=== PATIENT | male | born 1930 | race Caucasian/White ===

== ENCOUNTER 2016-08-13 22:22 | Emergency (ER) | payer OTHER ==
[~2016-08-13] VITALS: Ht 165.1 cm; Wt 78.0 kg
--- NOTE | 2016-08-13 22:25 | NUR ---
PT PRESENTED TO THE ER WITH A C/O GENERALIZED ABD PAIN THAT RADIATES TO THE CHEST. PT IS C/O PAIN 10/24. PT IS ENGLISH SPEAKING ONLY AND FAMILY IS AT THE BEDSIDE. PT IS ON THE MONITOR AND CONTINUOUS PULSE OX. VSS
[2016-08-13] MEDS ORDERED: IV NS 0.9% 500 ML BAG IV ONE (23:00)
[2016-08-13] MEDS ORDERED: MORPHINE SULFATE INJ 2 MG/ML DISP.SYRIN IV ONE (23:00)
[2016-08-13] MEDS ORDERED: ONDANSETRON HCL/PF 4 MG/2 ML VIAL IVP ONE (23:00)
[2016-08-13] MEDS ORDERED: IV NS 0.9% 500 ML IV ONE (23:01)
[2016-08-13] MEDS ORDERED: MORPHINE SULFATE INJ 2 MG/ML DISP.SYRIN ONE (23:01)
[2016-08-13] MEDS ORDERED: ONDANSETRON HCL/PF 4 MG/2 ML VIAL ONE (23:01)
[2016-08-13] MEDS ORDERED: IV SET PRIMARY 1 EA INFUS.SET MC ONE (23:01)
[2016-08-13 23:10] LABS: APPEARANCE,URINE CLEAR (CLEAR); BILIRUBIN,URINE NEGATIVE (NEGATIVE); BLOOD, URINE NEGATIVE Ery/uL (NEGATIVE); COLOR,URINE YELLOW (YELLOW); KETONES,URINE NEGATIVE (NEGATIVE); LEUKOCYTE ESTERASE ,URINE NEGATIVE (NEGATIVE); NITRITE, URINE NEGATIVE (NEGATIVE); PROTEIN,URINE TRACE mg/dl (NEGATIVE); UGLUCOSE NEGATIVE (NEGATIVE); UROBILINOGEN,URINE 0.2 EU/dL (0.2)
[2016-08-13 23:11] LABS: BASOPHILS % (AUTO) 0.7 % (0.0-2.0); EOSINOPHILS # (AUTO) 0.2 /CMM (0.0-0.7); EOSINOPHILS % (AUTO) 2.3 % (0.0-6.0); HEMATOCRIT 32 % (39-51); HEMOGLOBIN 10.7 g/dL (13.5-17.5); LYMPHOCYTES # (AUTO) 1.7 /CMM (0.8-4.8); LYMPHOCYTES % (AUTO) 22.8 % (20.0-44.0); MEAN CORPUSCULAR HEMOGLOBIN 31 PG (26.0-33.0); MEAN CORPUSCULAR HGB CONC 33 g/dl (31.0-36.0); MEAN CORPUSCULAR VOLUME 94 fL (80-96); MONOCYTES # (AUTO) 0.9 /CMM (0.1-1.30); MONOCYTES % (AUTO) 12.1 % (2.0-12.0); NEUTROPHILS # (AUTO) 4.6 /CMM (1.8-8.9); NEUTROPHILS % (AUTO) 62.1 % (43.0-81.0); PLATELET COUNT (AUTO) 311 /CMM (150-450); RDW COEFFICIENT OF VARIATION 13.5 (11.5-15.0); WHITE BLOOD COUNT (AUTO) 7.3 K/uL (4.3-11.0)
[2016-08-13 23:18] LABS: BACTERIA,URINE None seen /HPF (None Seen); HYALINE CASTS, URINE Rare /LPF (None Seen); MUCUS,URINE Few /LPF (None Seen); RBC,URINE 0-2 /HPF (0-2); SQUAMOUS EPITHELIAL CELL,UR Rare /HPF (None Seen); WBC,URINE 0-2 /HPF (0-3)
[2016-08-13 23:30] LABS: CALCIUM, SERUM 8.6 mg/dL (8.5-10.1); CARBON DIOXIDE 19 mmol/L (21-32); CHLORIDE 112 mmol/L (98-107); CREATININE 0.8 mg/dL (0.6-1.3); GLUCOSE 121 mg/dL (74-106); POTASSIUM 4.4 mmol/L (3.5-5.1); SODIUM SERUM 142 mmol/L (136-145); UREA NITROGEN, BLOOD 35 mg/dL (7-18)
[2016-08-13 23:35] LABS: ALANINE AMINOTRANSFERASE 25 U/L (12-78); ALKALINE PHOSPHATASE 83 U/L (46-116); ASPARTATE AMINOTRANSFERASE 22 U/L (15-37); BILIRUBIN,DIRECT 0.1 mg/dL (0.0-0.2); BILIRUBIN,TOTAL 0.4 mg/dL (0.2-1.0); LIPASE 146 U/L (73-393)
[2016-08-13] MEDS ORDERED: CT SWABBABLE VALVE TRANS SET 1 EA INFUS.SET MC ONE (23:45)
[2016-08-13] MEDS ORDERED: IV NS 0.9% 250 ML IV ONE (23:45)
[2016-08-13] MEDS ORDERED: IOHEXOL-300 100 ML VIAL IV ONE ×2 (23:45→23:58)
--- NOTE | 2016-08-13 23:45 | NUR ---
PT LEFT FOR CT VIA GURNEY.
[2016-08-13 23:48] LABS: TROPONIN I < 0.017 ng/mL (0.00-0.056)
[2016-08-13 23:50] LABS: PROTHROMBIN TIME 10.7 SECS (9.5-12.7)
--- NOTE | 2016-08-14 00:04 | NUR ---
PT RETURNED FROM CT.
--- NOTE | 2016-08-14 01:18 | NUR ---
DR. BELLA IS AT THE BEDSIDE. SPEAKING TO THE PT WITH DAVID, SHUN, WHO IS TRANSLATING GEORGIAN FOR THE DR. AND THE PT.
--- NOTE | 2016-08-14 01:26 | NUR ---
IV removed. Catheter intact and site benign. Pressure and 4x4 applied to site. No bleeding noted.Patient discharged to home in stable condition. Written and verbal after care instructions given. Patient verbalizes understanding of instruction. PT AMBULATED OUT WITH A SLOW STEADY GAIT. PT'S DAUGHTERS ARE DRIVING PT HOME.
[2016-08-14 01:28] VITALS: BP 144/76
== END 2016-08-14 01:28 | disposition home or self-care (01) ==
LOC: ER 22:22
DX: K46.9 Unspecified abdominal hernia without obstruction or gangrene (principal); R19.7 Diarrhea, unspecified; I10 Essential (primary) hypertension
CPT/HCPCS: 36415; 71010; 74160; 80048; 80076; 81001; 83690; 84484; 85025; 85730; 93005; 96361; 96374; 96375; 99285; A4606; J2270; J2405; J7040; J7050; Q9967 ×2; Z7610; 81000-TC

== ENCOUNTER 2016-08-20 22:04 | Inpatient (IN) | payer OTHER ==
[~2016-08-20] VITALS: Ht 160 cm; Wt 67.1 kg
--- NOTE | 2016-08-20 22:30 | NUR ---
85 YO MALE BB SELF. PT IS ALERT X 3, C/O ABD PAIN WITH POOR APPITITE. PT AMBULATED TO ER BED WITH STEADY GAIT. SKIN WARM AND DRY, RR EVEN AN DUNLABORED. PT GOWNED, PLACED ON CARDIAC MONTIOR. AWAITING ORDERS FROM [employer] [facility]DER
[2016-08-20] MEDS ORDERED: MORPHINE SULFATE INJ 4 MG/ML DISP.SYRIN ONE (22:35)
[2016-08-20] MEDS ORDERED: ONDANSETRON HCL/PF 4 MG/2 ML VIAL ONE (22:35)
[2016-08-20] MEDS ORDERED: IV NS 0.9% 500 ML IV ONE (22:36)
[2016-08-20] MEDS ORDERED: IV SET PRIMARY 1 EA INFUS.SET MC ONE (22:36)
--- NOTE | 2016-08-20 22:47 | NUR ---
20G LEFT AC IV STARTED. BLOOD SAMPLE OBTAINED AND SENT TO LAB. MEDICATED PT ORDERED
[2016-08-20 22:56] LABS: BASOPHILS % (AUTO) 0.4 % (0.0-2.0); EOSINOPHILS # (AUTO) 0.1 /CMM (0.0-0.7); EOSINOPHILS % (AUTO) 1.9 % (0.0-6.0); HEMATOCRIT 33 % (39-51); HEMOGLOBIN 11.3 g/dL (13.5-17.5); LYMPHOCYTES # (AUTO) 1.5 /CMM (0.8-4.8); LYMPHOCYTES % (AUTO) 20.7 % (20.0-44.0); MEAN CORPUSCULAR HEMOGLOBIN 32 PG (26.0-33.0); MEAN CORPUSCULAR HGB CONC 34 g/dl (31.0-36.0); MEAN CORPUSCULAR VOLUME 93 fL (80-96); MONOCYTES # (AUTO) 0.6 /CMM (0.1-1.30); MONOCYTES % (AUTO) 8.7 % (2.0-12.0); NEUTROPHILS # (AUTO) 5.1 /CMM (1.8-8.9); NEUTROPHILS % (AUTO) 68.3 % (43.0-81.0); PLATELET COUNT (AUTO) 324 /CMM (150-450); RDW COEFFICIENT OF VARIATION 12.8 (11.5-15.0); RED BLOOD CELL COUNT(AUTO) 3.57 MIL/uL (4.5-6.0); WHITE BLOOD COUNT (AUTO) 7.4 K/uL (4.3-11.0)
[2016-08-20] MEDS ORDERED: IV NS 0.9% 500 ML BAG IV ONE (23:00)
[2016-08-20] MEDS ORDERED: ONDANSETRON HCL/PF 4 MG/2 ML VIAL IVP ONE (23:00)
[2016-08-20] MEDS ORDERED: MORPHINE SULFATE INJ 2 MG/ML DISP.SYRIN IV ONE (23:00)
[2016-08-20 23:07] LABS: CALCIUM, SERUM 8.8 mg/dL (8.5-10.1); CARBON DIOXIDE 20 mmol/L (21-32); CHLORIDE 106 mmol/L (98-107); GLUCOSE 115 mg/dL (74-106); POTASSIUM 4.8 mmol/L (3.5-5.1); SODIUM SERUM 137 mmol/L (136-145); UREA NITROGEN, BLOOD 32 mg/dL (7-18)
[2016-08-20 23:13] LABS: ALANINE AMINOTRANSFERASE 33 U/L (12-78); ALBUMIN 3.2 g/dL (3.4-5.0); ALKALINE PHOSPHATASE 104 U/L (46-116); ASPARTATE AMINOTRANSFERASE 21 U/L (15-37); BILIRUBIN,DIRECT 0.1 mg/dL (0.0-0.2); LIPASE 163 U/L (73-393); TOTAL PROTEIN, SERUM 7.3 g/dL (6.4-8.2)
[2016-08-20 23:14] LABS: TROPONIN I < 0.017 ng/mL (0.00-0.056)
[2016-08-20 23:28] LABS: BILIRUBIN,TOTAL 0.3 mg/dL (0.2-1.0)
[2016-08-20 23:41] LABS: APPEARANCE,URINE CLEAR (CLEAR); BILIRUBIN,URINE NEGATIVE (NEGATIVE); BLOOD, URINE NEGATIVE Ery/uL (NEGATIVE); COLOR,URINE YELLOW (YELLOW); KETONES,URINE NEGATIVE (NEGATIVE); LEUKOCYTE ESTERASE ,URINE NEGATIVE (NEGATIVE); NITRITE, URINE NEGATIVE (NEGATIVE); PROTEIN,URINE TRACE mg/dl (NEGATIVE); UGLUCOSE NEGATIVE (NEGATIVE); UROBILINOGEN,URINE 0.2 EU/dL (0.2)
[2016-08-20 23:49] LABS: BACTERIA,URINE None seen /HPF (None Seen); RBC,URINE 0-2 /HPF (0-2); SQUAMOUS EPITHELIAL CELL,UR Rare /HPF (None Seen); WBC,URINE 0-2 /HPF (0-3)
[2016-08-20 23:50] LABS: HYALINE CASTS, URINE Few /LPF (None Seen); MUCUS,URINE Few /LPF (None Seen)
[2016-08-21] MEDS ORDERED: ACETAMINOPHEN 325 MG TABLET PO PRN (01:00)
[2016-08-21] MEDS ORDERED: ONDANSETRON HCL/PF 4 MG/2 ML VIAL IVP PRN (01:00)
[2016-08-21] MEDS ORDERED: ZOLPIDEM TARTRATE 5 MG TABLET PO PRN (01:00)
[2016-08-21] MEDS ORDERED: MAGNESIUM HYDROXIDE 30 ML UDC PO PRN (01:00)
[2016-08-21] MEDS ORDERED: MAG HYDROX/AL HYDROX/SIMETH 30 ML UDC PO PRN (01:00)
[2016-08-21] MEDS ORDERED: Z GUARD REMEDY 2 OZ OINT TP PRN (01:00)
[2016-08-21] MEDS ORDERED: MORPHINE SULFATE INJ 2 MG/ML DISP.SYRIN IV PRN (01:00)
--- NOTE | 2016-08-21 01:51 | NUR ---
PT TRANSPORTED TO [facility] BED VIA GURNEY BY EMT
[2016-08-21] MEDS ORDERED: IV NS 0.9% 1,000 ML ONE (03:54)
[2016-08-21] MEDS ORDERED: IV SET PRIMARY PUMP SET 1 EA INFUS.SET MC ONE (03:55)
[2016-08-21] MEDS ORDERED: SECONDARY IV SET 1 EA INFUS.SET MC ONE (03:55)
--- NOTE | 2016-08-21 06:59 | NUR ---
ADMITTED THIS 85 YEARS OLD MALE FROM E.. PT IS ALERT X 3, C/O ABD PAIN WITH POOR APPITITE. PT AMBULATED TO BATHROOM, WITH STEADY GAIT. SKIN WARM AND DRY, RR EVEN AND UNLABORED. AFIBRILE VITAL SIGN STABLE, SALINE LOCK TO L AC INFUSING WITH NORMAL SALINE, SKIN INTACT WILL ENDURSE TO THE MORNING NURSE TO CONTINUNITY OF CARE.
[2016-08-21] MEDS: PANTOPRAZOLE 40 MG TABLET.DR PO SCH (07:30)
--- NOTE | 2016-08-21 07:50 | NUR ---
MS RN NOTES RECEIVED REPORT WITH PATIENT LAYING DOWN IN BED. NO S/S OF ACUTE DISTRESS NOTED. NO SOB NOTED. IV IS PATENT AND INTACT. BED IS IN LOWEST LOCKED POSITION. CALL LIGHT IS WITHIN REACH. WILL CONTINUE TO MONITOR THROUGHOUT SHIFT.
[2016-08-21 08:00] VITALS: BP 104/64
[2016-08-21] MEDS ORDERED: AMLO1CAP10 PO (08:32)
[2016-08-21] MEDS ORDERED: TAMS0.4C34 PO (08:32)
[2016-08-21] MEDS ORDERED: ACET-868 PO (08:32)
--- NOTE | 2016-08-21 08:50 | NUR ---
MS RN NOTES RECEIVED CALL FROM RADIOLOGY TO KEEP PATIENT NPO UNTIL CT WITH CONTRAST IS COMPLETED.
[2016-08-21] MEDS: ACETYLCYSTEINE 10% 3,000 MG/30 ML VIAL PO SCH ×2 (09:00→17:42)
[2016-08-21] MEDS ORDERED: PEG 3350/NA SULF,BICARB,CL/KCL 4,000 ML BOTTLE PO ONE (13:00)
[2016-08-21] MEDS ORDERED: IOHEXOL-300 100 ML VIAL IV ONE (15:32)
[2016-08-21] MEDS ORDERED: IV NS 0.9% 250 ML IV ONE (15:32)
--- NOTE | 2016-08-21 15:45 | NUR ---
MS RN NOTES PATIENT COMPLAINING OF SEVERE PAIN. , DR. ROLLE MADE AWARE. ORDERS RECEIVED TO ADMINISTER 2MG MORPHINE Q2H PRN. WILL CONTINUE TO MONITOR
[2016-08-21 16:00] VITALS: BP 169/73
[2016-08-21] MEDS: MORPHINE SULFATE INJ 2 MG/ML DISP.SYRIN IV PRN ×2 (17:43→20:10)
--- NOTE | 2016-08-21 18:56 | NUR ---
MS RN NOTES PATIENT IS CURRENTLY SITTING UP IN BED. PATIENT IS A/OX4, EGYPTIAN SPEAKING. DAUGHTER AT BEDSIDE. PATIENT IN PROCESS OF DRINKING GO LYTELY. FREQUENTLY ENCOURAGING PATIENT TO DRINK GO LYTELY. PATIENT COMPLAINING OF ABDOMINAL PAIN STILL. NO SOB HAS BEEN NOTED. IV IS PATENT AND INTACT. CALL LIGHT WITHIN REACH. BED IN LOW, LOCKED POSITION, WILL ENDORSE CARE TO PM SHIFT.
--- NOTE | 2016-08-21 19:15 | NUR ---
RN NOTES RECEIVED PT AWAKE, OUT OF BED SITTING IN THE CHAIR, NO SOB, NOT IN DISTRESS, ON ROOM AIR AND TOLERATED WELL. PT ALERT AND ORIENTED X3, [place] SPEAKING ONLY, PAIN ON ABDOMEN AT 6/10, WILL ADMINISTER PAIN MEDS WHEN ITS DUE. IV ACCESS ON LEFT AC PATENT AND INTACT. PT IS AMBULATORY WITH STEADY GAIT, WALKING IN THE HALLWAY WITH THE FAMILY. OFFERED GOLYTELY TOLERATED, IN PREPARATION FOR TOMORROW'S SCHEDULED EGD AND COLONOSCOPY.. KEPT COMFORTABLE AND ATTENDED. WILL CONTINUE TO MONITOR PT.
[2016-08-21 20:00] VITALS: BP 152/86
--- NOTE | 2016-08-21 20:10 | NUR ---
RN NOTES PT COMPLAINS OF ABDOMINAL PAIN 10/, MORPHINE 2MG GIVEN IV. WILL CONTINUE TO MONITOR PT.
--- NOTE | 2016-08-21 21:05 | NUR ---
RN NOTES CONSENT FOR EGD AND COLONOSCOPY GIVEN BY DAUGHTER, SARAH NEAL.
--- NOTE | 2016-08-21 21:39 | NUR ---
RN NOTES PT STILL IN PAIN, PER PT THE PAIN MEDICATION IS NOT EFFECTIVE. DR YE MADE AWARE WITH ORDER TO D/C MORPHINE 2MG IV Q2H PRN AND CHANGE TO MORPHINE SULPHATE 3MG IV Q2H PRN FOR SEVERE PAIN. PT AND DAUGHTER AT BEDSIDE MADE AWARE. WILL CONTINUE TO MONITOR PT.
[2016-08-21 22:00] VITALS: BP 152/86
[2016-08-21] MEDS ORDERED: MORPHINE SULFATE INJ 4 MG/ML DISP.SYRIN ONE (22:16)
[2016-08-21] MEDS: MORPHINE SULFATE INJ 4 MG/ML DISP.SYRIN IV PRN (22:37)
--- NOTE | 2016-08-21 22:37 | NUR ---
RN NOTES PT COMPLAINS OF ABDOMINAL PAIN /, MORPHINE 3MG GIVEN IV. WILL CONTINUE TO MONITOR PT.
--- NOTE | 2016-08-22 | NUR ---
RN NOTES PLACED PT ON NPO, DAUGHTER AT BEDSIDE ATTRACTION ATTENDANT. PT VERBALIZES UNDERSTANDING. WILL CONTINUE TO MONITOR PT.
[2016-08-22] MEDS ORDERED: MORPHINE SULFATE INJ 4 MG/ML DISP.SYRIN ONE (02:23)
[2016-08-22] MEDS: MORPHINE SULFATE INJ 4 MG/ML DISP.SYRIN IV PRN (02:29)
[2016-08-22] MEDS: IV NS 0.9% 1,000 ML IV PRN (05:39)
--- NOTE | 2016-08-22 06:59 | NUR ---
RN NOTES PT AWAKE, OUT OF BED SITTING IN THE CHAIR. NO SOB, NOT IN DISTRESS, ON ROOM AIR AND TOLERATED WELL. VITAL SIGNS STABLE, AFEBRILE. NO EPISODE OF NAUSEA AND VOMITING. KEPT PAIN AT TOLERABLE LEVEL. UNABLE TO FINISH GOLYTELY 4 LITERS, ONLY 2 LITERS WITH CLEAR BOWEL MOVEMENT NOTED. FOR EGD AND COLONOSCOPY TODAY, AWAITING FOR SCHEDULE. KEPT PT ON NPO. ALL NEEDS ATTENDED. WILL ENDORSE TO MORNING RN FOR CONTINUITY OF CARE.
[2016-08-22 07:06] LABS: BASOPHILS % (AUTO) 0.3 % (0.0-2.0); EOSINOPHILS % (AUTO) 0.5 % (0.0-6.0); HEMATOCRIT 33 % (39-51); HEMOGLOBIN 11.3 g/dL (13.5-17.5); LYMPHOCYTES # (AUTO) 1.8 /CMM (0.8-4.8); LYMPHOCYTES % (AUTO) 26.3 % (20.0-44.0); MEAN CORPUSCULAR HEMOGLOBIN 32 PG (26.0-33.0); MEAN CORPUSCULAR HGB CONC 34 g/dl (31.0-36.0); MEAN CORPUSCULAR VOLUME 93 fL (80-96); MONOCYTES # (AUTO) 0.8 /CMM (0.1-1.30); MONOCYTES % (AUTO) 11.5 % (2.0-12.0); NEUTROPHILS # (AUTO) 4.3 /CMM (1.8-8.9); NEUTROPHILS % (AUTO) 61.4 % (43.0-81.0); PLATELET COUNT (AUTO) 328 /CMM (150-450); RDW COEFFICIENT OF VARIATION 13.5 (11.5-15.0); RED BLOOD CELL COUNT(AUTO) 3.54 MIL/uL (4.5-6.0)
--- NOTE | 2016-08-22 07:17 | NUR ---
MS RN OPENING NOTES PT RECEIVED AWAKE IN BED IN NO ACUTE SIGNS OF DISTRESS. ALERT AND ORIENTED X3, DENIES ANY PAIN OR DISCOMFORTS AT THIS TIME. FOR EGD AND COLONOSCOPY TODAY, NPO MAINTAINED. ON ROOM AIR, RESPIRATION EVN AND UNLABORED. IV ACCESS ON LAC G#18 INTACT AND PATENT. CALL LIGHT WITHIN REACH. BED ALARM IN PLACE. BED IN LOW POSITION AND LOCKED. SAFETY PRECAUTIONS MAINTAINED. WILL CONTINUE TO MONITOR ACCORDINGLY.
[2016-08-22 07:27] LABS: ALANINE AMINOTRANSFERASE 30 U/L (12-78); ALBUMIN 2.9 g/dL (3.4-5.0); ALKALINE PHOSPHATASE 95 U/L (46-116); ASPARTATE AMINOTRANSFERASE 18 U/L (15-37); BILIRUBIN,TOTAL 0.4 mg/dL (0.2-1.0); CALCIUM, SERUM 8.5 mg/dL (8.5-10.1); CARBON DIOXIDE 19 mmol/L (21-32); CHLORIDE 109 mmol/L (98-107); CREATININE 0.7 mg/dL (0.6-1.3); GLUCOSE 96 mg/dL (74-106); PHOSPHORUS 3.9 mg/dL (2.5-4.9); POTASSIUM 4.2 mmol/L (3.5-5.1); SODIUM SERUM 141 mmol/L (136-145); TOTAL PROTEIN, SERUM 6.9 g/dL (6.4-8.2); UREA NITROGEN, BLOOD 16 mg/dL (7-18)
[2016-08-22] MEDS: PANTOPRAZOLE 40 MG TABLET.DR PO SCH (07:30)
[2016-08-22 07:35] LABS: IRON, SERUM 25 ug/dl (50-175); TOTAL IRON BINDING CAPACITY 256 ug/dl (250-450)
[2016-08-22 07:36] LABS: FERRITIN 101 ng/mL (8-388)
[2016-08-22 08:00] VITALS: BP 152/86
[2016-08-22 08:58] LABS: RETICULOCYTE COUNT 0.7 % (0.6-2.5)
[2016-08-22] MEDS ORDERED: DORZ10DR8 RIGHTEYE (11:09)
[2016-08-22] MEDS ORDERED: TIMO5DRO4 RIGHTEYE (11:09)
--- NOTE | 2016-08-22 12:28 | NUR ---
RN NOTES CALLED FRANCES PAYAN REGARDING PATIENT'S COLONOSCOPY AND EGD PROCEDURES. HE SAID THAT TO PUT PATIENT ON CLEAR LIQUIDS DIET IF PROCEDURES NOT DONE TODAY AND NPO AFTER DINNER. PATIENT AND DAUGHTER INFORMED AND VERBALIZED UNDERSTANDING.
[2016-08-22] MEDS ORDERED: SECONDARY IV SET 1 EA INFUS.SET MC ONE (14:24)
[2016-08-22] MEDS: SOD FERRIC GLUC 125 MG in IV NS 0.9% 100 ML IV SCH (14:29)
[2016-08-22 16:00] VITALS: BP 135/60
--- NOTE | 2016-08-22 18:56 | NUR ---
MS RN CLOSING NOTES PATIENT RESTING IN BED WITH FAMILY AT BEDSIDE. ALERT AND ORIENTED X3, NO C/O PAIN THROUGHOUT THE DAY. ALL REQUIRED NURSING CARE DONE. FOR EGD AND COLONOSCOPY TOMORROW, NPO AFTER DINNER ENFORCED, FAMILY AWARE. ON ROOM AIR, NO SOB NOTED. IV ACCESS ON LAC G#18 INTACT AND PATENT. CALL LIGHT WITHIN REACH. BED IN LOW POSITION AND LOCKED. SAFETY PRECAUTIONS MAINTAINED. WILL ENDORSED TO PATIENT REGISTRAR FOR ALVA
--- NOTE | 2016-08-22 19:35 | NUR ---
RN OPENING NOTES RECEIVED REPORT FROM RAINA RIVERS RN. FOUND Pt AWAKE, SITTING IN BED, EATING JELLO. FAMILY VISITING AT BEDSIDE, ASSISTING WITH THE FEEDING. Pt WILL BE NPO AT MIDNIGHT TONIGHT. EGD & COLONOSCOPY SCHEDULED FOR TOMORROW. NO S/S OF ACUTE DISTRESS OR SOB NOTED. Pt C/O NO PAIN AT THIS TIME. Pt IS A/OX3, PANAMANIAN SPEAKING. Pt IS VERBAL, ABLE TO MAKE NEEDS KNOWN. IV ACCESS LAC #18G IVF NS @75ML/HR INFUSING WELL. SAFETY MEASURES IN PLACE. BED LOW, LOCKED, HOB ELEVATED, SIDE RAILS UP, CALL LIGHT AND BEDSIDE TABLE WITHIN REACH. WILL CONTINUE TO MONITOR Pt THROUGHOUT THE NIGHT FOR SAFETY.
[2016-08-22 20:00] VITALS: BP 141/78
[2016-08-22] MEDS: ACETYLCYSTEINE 10% 3,000 MG/30 ML VIAL PO SCH (20:00)
[2016-08-22] MEDS: TIMOLOL 0.5% SOLN OPHTH 5 ML BOTTLE EACHEYE SCH (21:00)
[2016-08-22] MEDS: DORZOLAMIDE OPTH 2% 10 ML BOTTLE EACHEYE SCH (21:00)
--- NOTE | 2016-08-22 21:00 | NUR ---
RN NOTES TIMOLOL & DORZALAMIDE EYEDROPS WERE NOT FOUND IN Pt's CASSETTE OR IN Pt's ROOM. FAXED MED INFO TO NURSE SUP, BUT THERE WAS NONE AVAILABLE FOR Pt. WILL INFORM PHARMACY TO BRING THE EYEDROPS UP TO THE FLOOR SO THAT THE DAYNURSE CAN ADMINISTER IT @0900 TOMORROW. WILL ENDORSE TO DAYSHIFT RN.
[2016-08-23] MEDS: IV NS 0.9% 1,000 ML IV PRN (05:16)
--- NOTE | 2016-08-23 06:00 | NUR ---
STARTED NEW IV ACCESS R HAND #22G.
--- NOTE | 2016-08-23 06:47 | NUR ---
RN CLOSING NOTES NO SIGNIFICANT CHANGES DURING THE NIGHT. NO S/S OF ACUTE DISTRESS OR SOB. ALL NEEDS MET AND ATTENDED TO. WILL ENDORSE TO DAYSHIFT RN FOR Pt's ALVA.
[2016-08-23] MEDS: PANTOPRAZOLE 40 MG TABLET.DR PO SCH (07:30)
--- NOTE | 2016-08-23 07:30 | NUR ---
m/s meter record clerk: initial assessment received pt in bed awake, a/ox4; ambulatory; albanian speaking only. daughter at bedside to translate. pt remains npo, pt scheduled for egd and colonoscopy. no c/o n/v or abdominal discomfort. instructed to call for assistance. will continue to monitor.
[2016-08-23 08:00] VITALS: BP 139/64
[2016-08-23 08:12] LABS: CARBOHYDRATE AG 19-9 6 U/mL (0-35); IMMUNOGLOBULIN A, SERUM 296 mg/dL (61-437); IMMUNOGLOBULIN G, SERUM 1126 mg/dL (700-1600); IMMUNOGLOBULIN M, SERUM 50 mg/dL (15-143)
--- NOTE | 2016-08-23 09:50 | NUR ---
m/s contact clerk: gi f/u seen and examined by dr. vogt with new orders. pt has already have consent for egd and colonoscopy in chart. pt aware a need for stool collection and verbalized understanding with [place] staff translating. pt remains npo. instructed to call for assistance. will continue to monitor.
[2016-08-23 11:12] LABS: INR 1.06 (0.87-1.13); PROTHROMBIN TIME 11.4 SECS (9.5-12.7)
[2016-08-23 12:16] LABS: *SPE ALBUMIN 3.4 g/dL (2.9-4.4); *SPE ALPHA-1-GLOBULIN 0.4 g/dL (0.0-0.4); *SPE ALPHA-2-GLOBULIN 0.7 g/dL (0.4-1.0); *SPE GLOBULIN, TOTAL 3.3 g/dL (2.2-3.9); *SPE M-SPIKE Not Observed g/dL (Not Observed); *SPE PROTEIN TOTAL 6.7 g/dL (6.0-8.5); *SPEGAMMA GLOBULIN 1.2 g/dL (0.4-1.8)
--- NOTE | 2016-08-23 12:20 | NUR ---
m/s lay out maker: notes pt moved collection hat when having a bowel movement and wasn't sure if it has urine in it. specimen discard and teaching and education provided to pt and 2 daughters and verbalized understanding. instructed to call for assistance. will continue to monitor.
[2016-08-23] MEDS: TIMOLOL 0.5% SOLN OPHTH 5 ML BOTTLE EACHEYE SCH ×2 (12:41→21:22)
[2016-08-23] MEDS: DORZOLAMIDE OPTH 2% 10 ML BOTTLE EACHEYE SCH ×2 (12:44→21:22)
--- NOTE | 2016-08-23 13:25 | NUR ---
M/S OPERATING SYSTEMS PROGRAMMER: NOTES STOOL COLLECTED AND SENT TO LAB.
--- NOTE | 2016-08-23 14:00 | NUR ---
m/s road monkey: notes down for egd and colonoscopy via bed accompanied by o.r. team at this time.
[2016-08-23 14:41] LABS: OCCULT BLOOD STOOL NEGATIVE (NEGATIVE)
[2016-08-23] MEDS ORDERED: ANESTHESIA TRAY IN PYXIS 1 EA TRAY MC ONE (15:28)
[2016-08-23 15:45] VITALS: BP 143/69
--- NOTE | 2016-08-23 15:45 | NUR ---
m/s electric installer: notes received pt from recovery room with dx: s/p egd with orders to resume brat diet, sb series in am ac stat, spot ti. and verified order from dr. vogt. order carried out and noted.
--- NOTE | 2016-08-23 15:55 | NUR ---
m/s director of scout work: notes dr. vogt at bedside talking to family (2 daughter) and pt at this time and updated plan of care.
--- NOTE | 2016-08-23 15:58 | NUR ---
m/s marine biologist: notes radiology dept notified and spoke to concha (mac) re: sm series stat before breakfast tomorrow.
[2016-08-23 16:00] VITALS: BP 149/60
[2016-08-23] MEDS ORDERED: SECONDARY IV SET 1 EA INFUS.SET MC ONE (16:44)
[2016-08-23] MEDS: SOD FERRIC GLUC 125 MG in IV NS 0.9% 100 ML IV SCH (16:55)
--- NOTE | 2016-08-23 18:30 | NUR ---
m/s public works supervisor: notes pt sounds asleep. daughter remains at bedside. pt tolerated brat diet. needs attended. will continue to monitor.
--- NOTE | 2016-08-23 19:36 | NUR ---
RN OPENING NOTES RECEIVED REPORT FROM XAVI RIVERS LVN. FOUND Pt AWAKE. FAMILY VISITING AT BEDSIDE. Pt HAD EGD & COLONOSCOPY TODAY. Pt IS A/OX3, [place] SPEAKING. Pt IS VERBAL, ABLE TO MAKE NEEDS KNOWN. IV ACCESS R HAND #22G, IVF NS @75ML/HR. SAFETY MEASURES IN PLACE. BED LOW, LOCKED, HOB ELEVATED, SIDE RAILS UP, CALL LIGHT AND BEDSIDE TABLE WITHIN REACH. WILL CONTINUE TO MONITOR Pt THROUGHOUT THE NIGHT FOR SAFETY.
[2016-08-23 20:00] VITALS: BP 152/80
[2016-08-23 22:00] VITALS: BP 152/80
--- NOTE | 2016-08-23 23:11 | NUR ---
RN NOTES Pt C/O SLIGHT ABD'L PAIN. REQUESTED TYLENOL. ADMINISTERED PRN TYLENOL 650MG.
--- NOTE | 2016-08-24 06:46 | NUR ---
RN CLOSING NOTES NO SIGNIFICANT CHANGES DURING THE SHIFT. ALL NEEDS MET AND ATTENDED TO. NO S/S OF ACUTE DISTRESS OR SOB NOTED. SAFETY MEASURES IN PLACE. WILL ENDORSE TO DAYSHIFT RN FOR Pt's ALVA.
[2016-08-24 08:00] VITALS: BP_SYST 107; BP_SYST 127; BP_DIAS 51; BP_DIAS 76
--- NOTE | 2016-08-24 08:00 | NUR ---
MS/RN AM SHIFT INITIAL NOTES RECEIVED PT AWAKE SITTING IN BED, WITH DAUGHTER AT BEDSIDE. PT A/O X 3, UKRAINIAN SPEAKING, DENIES ANY SYMPTOMS. ON ROOM AIR SATURATING @ 95%, LUNG SOUNDS CLEAR. WITH ON GOING IV IFUSION OF NS @ 75CC/HR, IV SITE PATENT WITH NO S/S OF INFECTION. PT IS COMFORTABLE AT THIS TIME. SCHEDULED AM MEDS TO BE GIVEN. CL WITHIN REACHED AND SAFETY MAINTAINED. ON GOING MONITORING.
[2016-08-24] MEDS: PANTOPRAZOLE 40 MG TABLET.DR PO SCH (08:51)
[2016-08-24] MEDS: TIMOLOL 0.5% SOLN OPHTH 5 ML BOTTLE EACHEYE SCH ×2 (08:51→21:51)
[2016-08-24] MEDS: DORZOLAMIDE OPTH 2% 10 ML BOTTLE EACHEYE SCH ×2 (08:52→21:51)
[2016-08-24] MEDS: IV NS 0.9% 1,000 ML IV PRN (10:30)
[2016-08-24] MEDS: HYDROCODONE/APAP 5/325MG 1 EACH TABLET PO PRN ×2 (10:30→14:42)
--- NOTE | 2016-08-24 12:00 | NUR ---
MS/RN NPO - FOLLOW-UP SMALL BOWEL PT PLACED NPO FOR X-RAY SMALL BOWEL FOLLOW THROUGH BEFORE D/C. NO ACUTE CHANGE OF CONDITION. MONITORING CONTINUED.
--- NOTE | 2016-08-24 14:15 | NUR ---
called for patient in am, he was fed . spoke to radiologist and recommended for the patient to be npo for [address] Pisano, suggested to do sbft next day in AM.
[2016-08-24] MEDS: SOD FERRIC GLUC 125 MG in IV NS 0.9% 100 ML IV SCH (14:20)
--- NOTE | 2016-08-24 14:44 | NUR ---
MS/RN ROUNDS - DR. MESA PT SEEN & EXAMINED BY DR. MESA. PT WILL HAVE THE FOLLOW THOROUGH ABDOMEN X-RAY IN AM. DIET CHANGE TO SOFT DIET.
[2016-08-24 16:00] VITALS: BP 143/86
--- NOTE | 2016-08-24 19:36 | NUR ---
MS/RN AM SHIFT END NOTES NO ACUTE CHANGE OF CONDITION NOTED DURING THE SHIFT. NEEDS MET. PT ENDORSED TO PM NURSE TO CONTINUE CARE. ALSO ENDORSED TO PLACE PT NPO AFTER MIDNIGHT, NO BREAKFAST HOLD TRAY. SMALL BOWEL X-RAY FOLLOW THROUGH WILL BE PERFORMED IN AM (DR. MESA AWARE), THEN PT WILL BE DISCHARGE. CL WITHIN REACHED AND SAFETY MAINTAINED.
[2016-08-24 20:00] VITALS: BP 151/82
[2016-08-25] MEDS: MORPHINE SULFATE INJ 4 MG/ML DISP.SYRIN IV PRN (06:15)
--- NOTE | 2016-08-25 06:48 | NUR ---
MS RN NOTES AWAKE & RESPONSIVE. NOT IN ANY DISTRESS. NO SOB NOTED. DENIES ANY PAIN OR DISCOMFORT AT THIS TIME. WITH MIDLINE PATENT & INTACT. MONITORED ACCORDINGLY. CALL LIGHT WITHIN REACH. BED IN LOWEST POSITION. SR UP X 2 FOR SAFETY. WILL ENDORSE TO NEXT SHIFT.
[2016-08-25] MEDS: PANTOPRAZOLE 40 MG TABLET.DR PO SCH (07:30)
--- NOTE | 2016-08-25 07:30 | NUR ---
MS RN OPENING RECEIVED PATIENT A/OX3 SLEEPING AWAKE TO LIGHT TOUCH. PATIENT DENIES PAIN, SOB, DIFFICULTY BREATHING AT THIS TIME. PATIENT IS AWAITING SBFT TODAY AND IF NO COMPLICATIONS PER MD OK TO DC PATIENT. ALL NEEDS IN REACH, BED LOWERED AND LOCKED, RAILS UPX3 FOR SAFETY, BED ALARM ON, WILL ROUND Q2H OR LESS PER NEEDS
[2016-08-25 08:00] VITALS: BP_SYST 14; BP_SYST 140; BP_DIAS 79
[2016-08-25] MEDS: IV NS 0.9% 1,000 ML IV PRN (08:46)
--- NOTE | 2016-08-25 08:50 | NUR ---
MS RN NOTES PATIENT IS TAKEN DOWN FOR SBFT
[2016-08-25] MEDS: TIMOLOL 0.5% SOLN OPHTH 5 ML BOTTLE EACHEYE SCH (08:51)
[2016-08-25] MEDS: DORZOLAMIDE OPTH 2% 10 ML BOTTLE EACHEYE SCH (08:51)
--- NOTE | 2016-08-25 10:14 | NUR ---
MS RN NOTES POKE WITH DR SARIAH MOORE TO DC PATIENT ONCE HE IS DONE WITH THE SBFT
--- NOTE | 2016-08-25 12:00 | NUR ---
ms rn notes patient returned from radiology. stable
--- NOTE | 2016-08-25 12:33 | NUR ---
MS RN NOTES EDUCATED DAUGHTER ON BRAT DIET AND TAKING IMMODIUM PER DR MESA TO HELP WITH DIARRHEA; PER DR MESA GAVE HIS INFORMATION TO F/U WITH HIM IF THEY HAVE ANY QUESTIONS. STILL PENDING GASTRIC MUCOUSA NOTIFIED DAUGHTER STOOL SAMPLES NEGATIVE. EDUCATED TO F.U WITH DR BOYCE INFORMATION PROVIDED. PER NOMI SHE IS NOT LEAVING BECAUSE HE STILL HAS DIARRHEA. EXPLAINED THAT PATIENT HAS HAD PREP FOR EGD/COLON AND NOW A SBFT WHICH WILL CREATE DIARRHEA STILL. SHE WANTS TO SPEAK WITH MD. NOTIFIED DR ROLLE AND HE STATED HE WILL SEE PATIENT
--- NOTE | 2016-08-25 14:25 | NUR ---
MS HEAVEN NOTES SAT DOWN WITH DAUGHTER AGAIN AND ANSWERED ALL OF HER QUESTIONS. EXPLAINED BRAT DIET AND DC MATERIAL IN LENGTH. ANSWERED ALL OTHER QUESTIONS. GAVE F.U INFORMATION FOR MDS. DAUGHTER STATED UNDERSTANDING AND STATED SHE DOES NOT NEED TO SPEAK WITH DR ROLLE AGAIN AND IS OK TO SEND HER FATHER HOME. IV REMOVED PRESSURE AND DRESSING APPLIED NO BLEEDING. DAUGHTER SIGNED DC MATERIAL AND STATED UNDERSTANDING ONCE AGAIN. RX GIVEN AND EXPLAINED. ALL BELONGINGS ACCOUNTED FOR AND SIGNED. PATIENT ASSISTED TO WHEELCHAIR BY SHIRA WATERS AND TAKEN DOWN BY WHEELCHAIR TO PRIVATE CAR IN STABLE CONDITION. Addendum: 08/25/16 at 1429 by TAJ AMADOR RN DISCHARGE
== END 2016-08-25 14:30 | disposition home health service (06) | DRG 694 ==
LOC: ER 22:06 → MED 08-21 01:18
PROVIDERS: ADMIT Family Medicine; ATTEND Family Medicine
PROC: 0DBP8ZX Excision of Rectum, Via Natural or Artificial Opening Endoscopic, Diagnostic (ICD-10-PCS; principal; 2016-08-23 14:37)
PROC: 0DB68ZX Excision of Stomach, Via Natural or Artificial Opening Endoscopic, Diagnostic (ICD-10-PCS; principal; 2016-08-23 14:37)
PROC: 0DBF8ZX Excision of Right Large Intestine, Via Natural or Artificial Opening Endoscopic, Diagnostic (ICD-10-PCS; principal; 2016-08-23 14:37)
PROC: 0DBH8ZX Excision of Cecum, Via Natural or Artificial Opening Endoscopic, Diagnostic (ICD-10-PCS; principal; 2016-08-23 14:37)
DX: C80.0 Disseminated malignant neoplasm, unspecified (principal); C34.90 Malignant neoplasm of unspecified part of unspecified bronchus or lung; I10 Essential (primary) hypertension; D50.9 Iron deficiency anemia, unspecified; F17.210 Nicotine dependence, cigarettes, uncomplicated; H26.9 Unspecified cataract; R10.9 Unspecified abdominal pain; K40.90 Unilateral inguinal hernia, without obstruction or gangrene, not specified as recurrent; N40.0 Benign prostatic hyperplasia without lower urinary tract symptoms; K80.20 Calculus of gallbladder without cholecystitis without obstruction; R19.7 Diarrhea, unspecified
CPT/HCPCS: 36415; 71270-TC; 72194-TC; 74170-TC; 74250-TC; 80048-TC; 80053-TC; 80076-TC; 81000-TC; 82272-TC; 82378; 82728-TC; 82746; 82784; 83540-TC; 83605-TC; 83690-TC; 83735-TC; 84100-TC; 84155; 84165; 84484-TC; 85025-TC; 85045-TC; 85610-TC; 86301; 86334; 87040-TC; 87045-TC; 87081-TC; 88305-TC; 88313-TC; 88342; 89055; A4606; J2270; J2405; J2704; J2916; J3490; J7030; J7040; J7050; Q9967; Z7610

== ENCOUNTER 2016-08-29 21:33 | Inpatient (IN) | payer OTHER ==
[~2016-08-29] VITALS: Ht 175.3 cm; Wt 77.1 kg
[~2016-08-29 21:33] MED LIST: ACET-868 PO; AMLO1CAP10 PO; DORZ10DR8 RIGHTEYE; TAMS0.4C34 PO; TIMO5DRO4 RIGHTEYE
--- NOTE | 2016-08-29 21:40 | NUR ---
To bed 07 a 85 yo male bibfamily with c/o difficulty peeing and lower abdominal pain. Per familiy, patient only had only "small amount of dribbling urine," and has only 3 cups of water today. Per family, the patient had the same pain from last week that he came to er for, and had n/v after taking tyl with codeine. VSS. No s/s of acute distress. Breathing even and unlabored. Comfort measures initiated. Awaiting for er md steele.
[2016-08-29] MEDS ORDERED: LIDOCAINE 2% JEL UROJET 10 ML MM ONE ×2 (22:11→22:30)
[2016-08-29 22:29] LABS: APPEARANCE,URINE CLEAR (CLEAR); BILIRUBIN,URINE NEGATIVE (NEGATIVE); BLOOD, URINE NEGATIVE Ery/uL (NEGATIVE); COLOR,URINE YELLOW (YELLOW); KETONES,URINE NEGATIVE (NEGATIVE); LEUKOCYTE ESTERASE ,URINE NEGATIVE (NEGATIVE); NITRITE, URINE NEGATIVE (NEGATIVE); PROTEIN,URINE 1+ mg/dl (NEGATIVE); UGLUCOSE NEGATIVE (NEGATIVE); UROBILINOGEN,URINE 0.2 EU/dL (0.2)
--- NOTE | 2016-08-29 22:40 | NUR ---
started a saline lock on the lac g20, blood drawn and sent to lab.
--- NOTE | 2016-08-29 22:40 | NUR ---
unable to insert benito cath, bladder scan done, only <25cc urine noted. Dr Osman notified, received new orders.
[2016-08-29] MEDS ORDERED: IV NS 0.9% 1,000 ML ONE (22:41)
[2016-08-29] MEDS ORDERED: IV SET PRIMARY 1 EA INFUS.SET MC ONE (22:41)
[2016-08-29 22:42] LABS: RBC,URINE 0-2 /HPF (0-2)
[2016-08-29 22:43] LABS: BACTERIA,URINE None seen /HPF (None Seen); MUCUS,URINE Moderate /LPF (None Seen); SQUAMOUS EPITHELIAL CELL,UR Rare /HPF (None Seen); WBC,URINE NONE SEEN /HPF (0-3)
[2016-08-29] MEDS ORDERED: IV NS 0.9% 1,000 ML BAG IV ONE (23:00)
[2016-08-29 23:11] LABS: BASOPHILS % (AUTO) 0.2 % (0.0-2.0); EOSINOPHILS % (AUTO) 0.4 % (0.0-6.0); HEMATOCRIT 34 % (39-51); HEMOGLOBIN 11.4 g/dL (13.5-17.5); LYMPHOCYTES # (AUTO) 0.9 /CMM (0.8-4.8); MEAN CORPUSCULAR HEMOGLOBIN 31 PG (26.0-33.0); MEAN CORPUSCULAR HGB CONC 33 g/dl (31.0-36.0); MEAN CORPUSCULAR VOLUME 94 fL (80-96); MONOCYTES # (AUTO) 0.7 /CMM (0.1-1.30); MONOCYTES % (AUTO) 7.9 % (2.0-12.0); NEUTROPHILS # (AUTO) 6.8 /CMM (1.8-8.9); NEUTROPHILS % (AUTO) 80.5 % (43.0-81.0); PLATELET COUNT (AUTO) 419 /CMM (150-450); RDW COEFFICIENT OF VARIATION 13.2 (11.5-15.0); RED BLOOD CELL COUNT(AUTO) 3.69 MIL/uL (4.5-6.0); WHITE BLOOD COUNT (AUTO) 8.4 K/uL (4.3-11.0)
[2016-08-29 23:25] LABS: CALCIUM, SERUM 9.1 mg/dL (8.5-10.1); CARBON DIOXIDE 21 mmol/L (21-32); CHLORIDE 105 mmol/L (98-107); GLUCOSE 125 mg/dL (74-106); POTASSIUM 4.8 mmol/L (3.5-5.1); SODIUM SERUM 137 mmol/L (136-145); UREA NITROGEN, BLOOD 33 mg/dL (7-18)
[2016-08-29 23:35] LABS: ALANINE AMINOTRANSFERASE 58 U/L (12-78); ALBUMIN 2.7 g/dL (3.4-5.0); ALKALINE PHOSPHATASE 124 U/L (46-116); ASPARTATE AMINOTRANSFERASE 60 U/L (15-37); BILIRUBIN,TOTAL 0.3 mg/dL (0.2-1.0); TOTAL PROTEIN, SERUM 7.1 g/dL (6.4-8.2)
--- NOTE | 2016-08-30 00:10 | NUR ---
Report given to Deneen COLLADO for medsurg admission and bailey.
--- NOTE | 2016-08-30 00:14 | NUR ---
Report given to Deneen COLLADO for medsurg admission and bailey.
--- NOTE | 2016-08-30 00:40 | NUR ---
one liter of NS infused, bladder scanner done with only <25cc noted, verified with charge nurse Carroll. Dr Osman notified, and okay to sent patient to floor.
--- NOTE | 2016-08-30 00:47 | NUR ---
Transported patient to [place] [id number], no incident noted. Family at bedside.
[2016-08-30 01:00] VITALS: BP 143/83
--- NOTE | 2016-08-30 01:00 | NUR ---
MS RN NOTES RECEIVED PT FROM THE ER VIA STRETCHER. TRANSFERRED TO BED SAFELY. PT IS AWAKE, A/O X 3. HUNGARIAN SPEAKING. DAUGHTERS AT BEDSIDE. NO DISTRESS, NO SOB NOTED. DENIES ABDOMINAL PAIN AT THIS TIME. IV SITE ON LAC INTACT ND PATENT , NO S/SOF INFILTRATION NOTED. BODY ASSESSMENT DONE, SKIN IS INTACT. PT IS AMBULATORY. ALL NEEDS ATTENDED AND MET . KEPT CLEAN AND DRY. WILL CONTINUE TO MONITOR. AWAITING FOR ADMISSION ORDERS FROM DR. WANG.
[2016-08-30] MEDS ORDERED: MAG HYDROX/AL HYDROX/SIMETH 30 ML UDC PO PRN (01:30)
[2016-08-30] MEDS ORDERED: ACETAMINOPHEN 325 MG TABLET PO PRN (01:30)
[2016-08-30] MEDS ORDERED: MAGNESIUM HYDROXIDE 30 ML UDC PO PRN (01:30)
[2016-08-30] MEDS ORDERED: ONDANSETRON HCL/PF 4 MG/2 ML VIAL IVP PRN (01:30)
[2016-08-30] MEDS ORDERED: ZOLPIDEM TARTRATE 5 MG TABLET PO PRN (01:30)
[2016-08-30] MEDS ORDERED: Z GUARD REMEDY 2 OZ OINT TP PRN (01:30)
[2016-08-30] MEDS ORDERED: IV SET PRIMARY PUMP SET 1 EA INFUS.SET MC ONE (01:36)
[2016-08-30] MEDS ORDERED: IV NS 0.9% 1,000 ML ONE (01:36)
[2016-08-30] MEDS ORDERED: MORPHINE SULFATE INJ 2 MG/ML DISP.SYRIN ONE (01:44)
[2016-08-30] MEDS: IV NS 0.9% 1,000 ML IV PRN ×2 (01:46→21:07)
[2016-08-30] MEDS ORDERED: AMLO1CAP9 PO (02:06)
[2016-08-30] MEDS: MORPHINE SULFATE INJ 2 MG/ML DISP.SYRIN IV PRN ×3 (02:14→13:44)
--- NOTE | 2016-08-30 02:15 | NUR ---
PT SEEN BY DR. WANG.
[2016-08-30 04:21] VITALS: BP 143/82
--- NOTE | 2016-08-30 06:26 | NUR ---
MS RN NOTES PT IN BED, RESTING COMFORTABLY. A/O X 3. BELARUSIAN SPEAKING. DAUGHTER AT BEDSIDE. NO DISTRESS, NO SOB NOTED. DENIES ABDOMINAL PAIN AT THIS TIME. IV SITE ON LAC INTACT AND PATENT , NO S/S OF INFILTRATION NOTED. IVF INFUSING WELL. SKIN IS INTACT. PT IS AMBULATORY. VOIDING FREELY WITH YELLOW URINE, NO HEMATURIA NOTED. ALL NEEDS ATTENDED AND MET . KEPT CLEAN AND DRY. WILL ENDORSE TO NEXT SHIFT FOR ALVA.
[2016-08-30 06:40] LABS: APPEARANCE,URINE SL CLOUDY (CLEAR); BILIRUBIN,URINE NEGATIVE (NEGATIVE); BLOOD, URINE 3+ Ery/uL (NEGATIVE); COLOR,URINE YELLOW (YELLOW); KETONES,URINE NEGATIVE (NEGATIVE); LEUKOCYTE ESTERASE ,URINE TRACE (NEGATIVE); NITRITE, URINE NEGATIVE (NEGATIVE); PROTEIN,URINE 1+ mg/dl (NEGATIVE); UGLUCOSE NEGATIVE (NEGATIVE); UROBILINOGEN,URINE 0.2 EU/dL (0.2)
--- NOTE | 2016-08-30 07:20 | NUR ---
RN MS NOTES PATIENT IN BED, SLEEPING BUT EASILY AROUSABLE, DAUGHTER AT BEDSIDE ABLE TO TRANSLATE, IVF INFUSING, DENIES PAIN AT THIS TIME, NEEDS ATTENDED, CALL LIGHT WITHIN REACH, WILL CONTINUE TO MONITOR.
[2016-08-30 08:00] VITALS: BP 135/74
[2016-08-30 08:17] LABS: RBC,URINE TOO NUMEROUS TO COUN /HPF (0-2)
[2016-08-30 08:18] LABS: BACTERIA,URINE Few /HPF (None Seen); SQUAMOUS EPITHELIAL CELL,UR Few /HPF (None Seen)
[2016-08-30] MEDS: PANTOPRAZOLE 40 MG TABLET.DR PO SCH (08:20)
[2016-08-30] MEDS: TAMSULOSIN 0.4 MG CAP.SR.24H PO SCH (08:20)
[2016-08-30] MEDS: HEPARIN SODIUM, PORCINE 5000 UNITS/1 ML VIAL SQ SCH ×2 (08:22→21:13)
[2016-08-30] MEDS ORDERED: TIMO5DRO31 OP (09:37)
[2016-08-30] MEDS ORDERED: DORZ10DR8 EACHEYE (09:37)
[2016-08-30] MEDS ORDERED: CEFTRIAXONE 1 G in IV D5W 50 ML IV SCH (13:30)
[2016-08-30] MEDS ORDERED: SECONDARY IV SET 1 EA INFUS.SET MC ONE (14:10)
--- NOTE | 2016-08-30 15:17 | NUR ---
RN MS NOTES PATIENT IS COMPLAINING OF PAIN ABDOMINAL PAIN INTERMITTENTLY, PATIENT APPEARS TO BE FEELING GASSY, DR. VALDES REVIEWED THE PATIENT'S CHART AND GAVE NEW ORDER FOR A CT SCAN, ORDER NOTED AND CARRIED OUT, PATIENT AND FAMILY MADE AWARE.
[2016-08-30] MEDS: HYDROCODONE/APAP 5/325MG 1 EACH TABLET PO PRN (15:39)
[2016-08-30 16:00] VITALS: BP 131/78
--- NOTE | 2016-08-30 16:06 | NUR ---
RN MS NOTES CT SCAN DONE, PATIENT ENCOURAGED TO AMBULATE ON THE HALLWAY TO HELP ALLEVIATE GAS.
--- NOTE | 2016-08-30 16:42 | NUR ---
RN MS NOTES INFORMED MARYBEL DE MANAGER TRANSFER OF CT SCAN RESULT, NO NEW ORDER AT THIS TIME. PATIENT AMBULATED ON THE HALLWAY MULTIPLE TIMES, AND NOW STATES PAIN IS BETTER, PER PATIENT GAS HAS PASSED. ABDOMEN SOFT AND NON-DISTENDED. BOWEL SOUNDS PRESENT IN ALL QUADRANTS. WILL CONTINUE TO MONITOR.
[2016-08-30] MEDS ORDERED: TIMOLOL 0.5% SOLN OPHTH 5 ML BOTTLE EACHEYE SCH (17:00)
[2016-08-30] MEDS ORDERED: DORZOLAMIDE OPTH 2% 10 ML BOTTLE EACHEYE SCH (17:00)
[2016-08-30] MEDS ORDERED: MORPHINE SULFATE INJ 2 MG/ML DISP.SYRIN IV PRN (18:00)
--- NOTE | 2016-08-30 18:48 | NUR ---
RN MS NOTES PATIENT IN BED, ALERT AND ORIENTED, IVF INFUSING, DENIES PAIN AT THIS TIME, ALL NEEDS ATTENDED AND MET, PATIENT AMBULATES ON THE HALLWAY, NO DISTRESS NOTED, CALL LIGHT WITHIN REACH, SAFETY MEASURES IN PLACE, WILL ENDORSE TO BALE SEWER FOR ALVA.
--- NOTE | 2016-08-30 19:30 | NUR ---
MS RN NOTES RECEIVED PT IN BED, A/O X 3. ALBANIAN SPEAKING. FAMILY MEMBERS AT BEDSIDE. PT IS STABLE AT THIS TIME. NO DISTRESS, NO SOB NOTED. IV SITE ON LAC G # 20 , INTACT AND PATENT. NO S/S OF INFILTRATION NOTED. IVF INFUSING WELL.NO C/O PAIN OR DISCOMFORT AT THIS TIME. ALL NEEDS ATTENDED.SAFETY PRECAUTIONS OBSERVED. WILL CONTINUE TO MONITOR.
--- NOTE | 2016-08-30 19:45 | NUR ---
PT WAS SEEN AND EXAMINED BY DR. BOYCE, DISCUSSED REGARDING THE MEDICAL CONDITION PLAN OF CARE TO THE PATIENT AND FAMILY VERBALIZED UNDERSTANDING.
[2016-08-30 20:00] VITALS: BP 123/69
[2016-08-30] MEDS: TIMOLOL 0.5% SOLN OPHTH 5 ML BOTTLE EACHEYE SCH (21:10)
[2016-08-30] MEDS: DORZOLAMIDE OPTH 2% 10 ML BOTTLE EACHEYE SCH (21:11)
[2016-08-30 22:00] VITALS: BP 123/69
--- NOTE | 2016-08-31 00:30 | NUR ---
MS RN NOTES PT IN BED, ASLEEP AT THIS TIME.A/O X 3 AROUSES EASILY , VERBALLY RESPONSIVE. STABLE. NO SOB , NO DISTRESS. NO SOB. NO S/S OF PAIN OR DISCOMFORT AT THIS TIME. URINATING WITH YELLOW URINE, NO HEMATURIA NOTED. DAUGHTER AT BEDSIDE. ALL NEEDS ATTENDED. WILL CONT TO MONITOR.
--- NOTE | 2016-08-31 05:23 | NUR ---
PT REFUSED BLOOD DRAW FOR LABS AT THIS TIME, RISK AND BENEFITS EXPLAINED, PT STILL REFUSED X 3. DAUGHTER AT BEDSIDE AND KYRA ( FLYING SHEAR OPERATOR ) AT BEDSIDE TO TRANSLATE.
[2016-08-31] MEDS: HYDROCODONE/APAP 5/325MG 1 EACH TABLET PO PRN (06:02)
--- NOTE | 2016-08-31 06:35 | NUR ---
MS RN NOTES PT IN BED, AWAKE, A/O X 3. POLISH SPEAKING. DAUGHTER AT BEDSIDE. PT IS STABLE. NO DISTRESS, NO SOB NOTED. IV SITE ON LAC G # 20 , INTACT AND PATENT. NO S/S OF INFILTRATION NOTED. IVF INFUSING WELL. NO C/O PAIN OR DISCOMFORT AT THIS TIME. ALL NEEDS ATTENDED AND MET. SAFETY PRECAUTIONS OBSERVED. WILL ENDORSE TO NEXT SHIFT FOR ALVA.
[2016-08-31] MEDS: PANTOPRAZOLE 40 MG TABLET.DR PO SCH (07:13)
--- NOTE | 2016-08-31 07:30 | NUR ---
MS RN NOTES RECEIVED PATIENT IN BED, AWAKE, A/O X3. APPEARS ANXIOUS. ON ROOM AIR, NO SOB. DAUGHTER AT THE BEDSIDE. PER NIGHT RN PATIENT REFUSED BLOOD DRAW FOR CBC AND BMP TODAY. EXPLAINED TO THE PATIENT THE IMPORTANCE, RISK AND BENEFITS OF THE TEST WITH LASER PRINT OPERATOR TELEPHONE SALES AGENT, PATIENT VERBALIZED UNDERSTANDING. WILL CALL LABORATORY.
[2016-08-31 07:59] VITALS: BP 138/73
[2016-08-31 08:00] VITALS: BP 138/73
[2016-08-31] MEDS: DORZOLAMIDE OPTH 2% 10 ML BOTTLE EACHEYE SCH (08:40)
[2016-08-31] MEDS: TIMOLOL 0.5% SOLN OPHTH 5 ML BOTTLE EACHEYE SCH (08:40)
[2016-08-31] MEDS: TAMSULOSIN 0.4 MG CAP.SR.24H PO SCH (08:42)
[2016-08-31] MEDS: HEPARIN SODIUM, PORCINE 5000 UNITS/1 ML VIAL SQ SCH (08:48)
[2016-08-31 09:08] LABS: BASOPHILS # (AUTO) 0.1 /CMM (0.0-0.2); EOSINOPHILS % (AUTO) 0.9 % (0.0-6.0); HEMATOCRIT 32 % (39-51); HEMOGLOBIN 11.1 g/dL (13.5-17.5); LYMPHOCYTES % (AUTO) 18.6 % (20.0-44.0); MEAN CORPUSCULAR HEMOGLOBIN 32 PG (26.0-33.0); MEAN CORPUSCULAR HGB CONC 34 g/dl (31.0-36.0); MEAN CORPUSCULAR VOLUME 93 fL (80-96); MONOCYTES # (AUTO) 0.6 /CMM (0.1-1.30); MONOCYTES % (AUTO) 11.4 % (2.0-12.0); NEUTROPHILS # (AUTO) 3.7 /CMM (1.8-8.9); NEUTROPHILS % (AUTO) 68.1 % (43.0-81.0); PLATELET COUNT (AUTO) 381 /CMM (150-450); RED BLOOD CELL COUNT(AUTO) 3.47 MIL/uL (4.5-6.0); WHITE BLOOD COUNT (AUTO) 5.5 K/uL (4.3-11.0)
[2016-08-31 09:24] LABS: CALCIUM, SERUM 8.4 mg/dL (8.5-10.1); CARBON DIOXIDE 22 mmol/L (21-32); CHLORIDE 106 mmol/L (98-107); CREATININE 0.7 mg/dL (0.6-1.3); GLUCOSE 101 mg/dL (74-106); PHOSPHORUS 2.9 mg/dL (2.5-4.9); POTASSIUM 3.8 mmol/L (3.5-5.1); SODIUM SERUM 137 mmol/L (136-145); UREA NITROGEN, BLOOD 23 mg/dL (7-18)
[2016-08-31 09:37] LABS: FREE PSA 0.5 ng/mL (0.00-45); PROSTATE SPECIFIC ANTIGEN SCR 2.27 ng/mL (0.00-4.00)
--- NOTE | 2016-08-31 10:35 | NUR ---
PATIENT IS SEEN BY JULIA-KENISHA, SPOKE TO SARAH-PATIENT'S DAUGHTER WITH LENGTH OF TIME. PATIENT TO BE DISCHARGED HOME ORDERED AND TO FOLLOW UP WITH PRIMARY MD FOR PET CAN PROCEDURE TO ANOTHER HOSPITAL.N
--- NOTE | 2016-08-31 12:13 | NUR ---
MS RN DISCHARGED PATIENT HAS BEEN CLEARED FOR DISCHARGE HOME BY [facility]. PATIENT IS AMBULATORY, NO C/O PAIN OR ANY DISCOMFORT. VOIDED WITHOUT DIFFICULTY. NO REPORTED DIARRHEA DURING THE SHIFT. DISCHARGE INSTRUCTION GIVEN TO DAUGHTERS-MARY AND SARAH WITH COOLER SERVICE SUPERVISOR. EDUCATIONAL INFO. REGARDING LOW FIBER FOOD PROVIDED TO THE PATIENT, VERBALIZED UNDERSTANDING BY MARY-DAUGHTER. BELONGINGS CHECKED. PRESCRIPTION GIVEN TO DAUGHTER-MARY. PATIENT AND DAUGHTERS-SARAH AND MARY UNDERSTAND THE NEED TO FOLLOW UP WITH PATIENT'S PRIMARY MD FOR PET SCAN PROCEDURE TO ANOTHER HOSP AFTER DISCHARGE. IV IN LEFT AC REMOVED, GAUZE APPLIED. NO BLEEDING NOTED. PATIENT LEFT HOSP IN STABLE CONDITION VIA PRIVATE CAR ACCOMPANIED BY DAUGHTER-MARY.
== END 2016-08-31 12:15 | disposition home or self-care (01) | DRG 463 ==
LOC: ER 21:35 → MEDSG2 08-30 00:33
PROVIDERS: ADMIT Internal Medicine; ATTEND Internal Medicine
DX: N39.0 Urinary tract infection, site not specified (principal); N17.0 Acute kidney failure with tubular necrosis; E43 Unspecified severe protein-calorie malnutrition; R18.8 Other ascites; C80.0 Disseminated malignant neoplasm, unspecified; E88.09 Other disorders of plasma-protein metabolism, not elsewhere classified; D63.8 Anemia in other chronic diseases classified elsewhere; C34.90 Malignant neoplasm of unspecified part of unspecified bronchus or lung; K80.20 Calculus of gallbladder without cholecystitis without obstruction; N40.1 Benign prostatic hyperplasia with lower urinary tract symptoms; I10 Essential (primary) hypertension; K40.90 Unilateral inguinal hernia, without obstruction or gangrene, not specified as recurrent; M62.50 Muscle wasting and atrophy, not elsewhere classified, unspecified site; Z68.25 Body mass index [BMI] 25.0-25.9, adult; R79.89 Other specified abnormal findings of blood chemistry; D50.9 Iron deficiency anemia, unspecified; H26.9 Unspecified cataract
CPT/HCPCS: 36415; 76770-TC; 80048-TC; 80053-TC; 81000-TC; 83735-TC; 84100-TC; 84153-TC; 84154-TC; 85025-TC; 87081-TC; 87086-TC; 87177; 87209; A4606; J0696; J1644; J2270; J3490; J7030; J7060; Z7610